=== PATIENT | male | born 1945 | race Caucasian/White ===

== ENCOUNTER → 2018-10-28 | Outpatient (CLI) | payer MEDICARE ==
--- NOTE | 2018-10-28 16:09 | Diagnostic Imaging Report ---
EXAM: Renal Ultrasound INDICATION: Straining to void ^[id number] ^[id number] ^Straining to void COMPARISON: None TECHNIQUE: Transverse and longitudinal images of the kidneys and bladder were obtained. FINDINGS: Right Kidney: Length: 13.0 x 5.8 x 5.3 cm Appearance: Increased echogenicity. Collecting system: No hydronephrosis Stones: None Cyst/Mass: 8.4 x 9.2 x 7.5 cm simple appearing cyst in the inferior right kidney. 8.4 x 9.2 x 7.1 cm simple appearing cyst in the upper pole of the right kidney. Left Kidney: Length: 10.8 x 5.4 x 6.1 cm Appearance: Normal echogenicity. Collecting system: No hydronephrosis Stones: None Cyst/Mass: None Bladder: Normal IMPRESSION: Simple appearing right renal cysts. Increased echogenicity in the kidneys could be due to chronic medical renal disease. Signed by: Dr. Feliciano Cash M.D. on 10/28/2018 4:06 PM
== END ==
LOC: US 14:38
PROVIDERS: ATTEND Urology
DX: R39.14 Feeling of incomplete bladder emptying (principal)
CPT/HCPCS: 76770

== ENCOUNTER → 2019-11-11 | Outpatient (CLI) | payer MEDICARE ==
--- NOTE | 2019-11-11 10:47 | Diagnostic Imaging Report ---
Renal ultrasound Comparison: None Clinical History: Renal cysts Technique: Sonographic evaluation of the kidneys was performed. Multiple images were submitted for interpretation, using a low-frequency curved transducer. Right kidney: The kidney measures 10.9 x 5.3 x 4.8 cm. The cortical echogenicity is within normal limits. The cortex measures 1.2 cm. There is no evidence of a focal mass. There is no evidence of hydronephrosis. There is no evidence of a shadowing stone. There is sonographic evidence of multiple cysts in the right kidney. The largest cyst is superior measuring 9.9 x 8.8 x 10.8 cm. There is a nearby cluster of cysts. There is another cyst inferiorly measuring 7.1 x 7.0 x 8.2 cm. There is no evidence of a perinephric fluid collection. Flow is visualized to the right kidney. Left kidney: The kidney measures 11.2 x 6.9 x 5.0 cm. The cortical echogenicity is within normal limits. The cortex measures 1.5 cm. There is no evidence of a focal mass. There is no evidence of hydronephrosis. There is no evidence of a shadowing stone. There is no evidence of a cyst. There is no evidence of a perinephric fluid collection. Flow is visualized to the left kidney. Survey images of the bladder demonstrate no abnormality. The prevoid residual volume is 372.8. Bilateral ureteral jets are seen. The prostate measures 3.2 x 3.4 x 4.4 cm with a volume of 24.5 cc. Impression: Multiple cysts in the right kidney Signed by: Rylan Ny MD on 11/11/2019 10:44 AM
== END ==
LOC: US 09:56
PROVIDERS: ATTEND Urology
DX: N28.1 Cyst of kidney, acquired (principal)
CPT/HCPCS: 76770